=== PATIENT | female | born 1975 | race Two or more races ===

== ENCOUNTER 2025-08-07 14:09 | Outpatient (CLI) | payer MEDICAID ==
[2025-08-07] MEDS ORDERED: ALBUTEROL SULF 2.5 MG/0.5ML(0.5%) NEB SOLN ONE (14:15)
== END 2025-08-07 17:00 | disposition home or self-care (01) ==
LOC: RT 14:09
PROVIDERS: ATTEND Internal Medicine Pulmonary Disease
DX: Z01.811 Encounter for preprocedural respiratory examination (principal); J45.50 Severe persistent asthma, uncomplicated
CPT/HCPCS: 94060; 94727; 94729